=== PATIENT | male | born 1935 | race African-American/Black ===

== ENCOUNTER 2017-10-15 10:33 | Inpatient (IN) | payer MEDICARE, OTHER ==
[~2017-10-15] VITALS: Ht 121.9 cm; Wt 48.6 kg
[~2017-10-15 10:33] MED LIST: BENZ-8 PO; BUDE10.2 IH; CITA20TA5 PO; CLOP75TA PO; DONE10TA7 PO; FINA5TAB4 PO; GLIP5TAB10 PO; HYDR-2758 PO; LATA2.5D3 EACHEYE; LISI-338 PO; LORA10TA3 PO; METF500T4 PO; OMEP40CA5 PO; SILO8CAP PO; SUCR1TAB PO; VENTOLIN HFA18 GM IH; VENTOLIN HFA18 GM INH; ZOLP5TAB5 PO
[2017-10-15] MEDS ORDERED: TRIA15OI9 TP (11:05)
[2017-10-15] MEDS ORDERED: TAMS0.4C2 PO (11:05)
[2017-10-15] MEDS ORDERED: LATA2.5D3 EACHEYE (11:05)
[2017-10-15] MEDS ORDERED: QUET100T PO (11:05)
[2017-10-15] MEDS ORDERED: SUCR1TAB PO (11:05)
[2017-10-15] MEDS ORDERED: PROM6.25 PO (11:05)
[2017-10-15] MEDS ORDERED: FERR-26 PO (11:05)
[2017-10-15 12:51] VITALS: BP 105/50
[2017-10-15 15:00] VITALS: BP 116/66
[2017-10-15] MEDS: IV NORMAL SALINE 1000ML BAG 1,000 ML IV SCH (15:56)
--- NOTE | 2017-10-15 16:09 | PDOC2 ---
GI CONSULT Reason For Consult: Anemia HPI: HPI: 81 y/o male directly admitted by Dr. Casiano this morning. Had labs drawn at some point (says last week), was told he was anemic. Is visually impaired and a poor historian, RN says confused at times. Not sure what meds he takes but summary list include Plavix, iron, omeprazole, and sucralfate. He denies abd pain, n/v, diarrhea, and constipation. Says has been eating and drinking ok. Not sure about bleeding. Thinks he had a colonoscopy a couple years ago. Not sure about previous EGD. Denies gallbladder, liver, or pancreas history. Says his sister knows more about his health history. Pending studies include: CBC, CMP, CXR, EKG, and stool culture. Last Hgb available for review from 04/2015 is 9.4. Hematology/oncology has been consulted as well. Chart lists h/o prostate cancer; he's unclear re: treatment. Update - Dr. Ignacio able to locate some records: EGD and colonoscopy 06/2007 (Dr. Naun Eisenberg for GI bleeding on Coumadin): reflux esophagitis, hiatal hernia, atrophic gastritis, diverticulosis, and internal hemorrhoids. Colonoscopy 12/2009 (Dr. Carloz Eisenberg for rectal bleeding): melanosis and internal hemorrhoids. EGD 06/2010 (Dr. Carias for anemia, dyspepsia, and dysphagia): mild esophagitis , gastric angiodysplasias treated w/ APC, unremarkable duodenum. PMH: PMH: per chart - HTN, HLD, COPD, pneumonia, SCOTT, PVD, CKD, DM, diabetic retinopathy/ blindness/glaucoma, insomnia, anemia, prostate cancer, (?treatment), bilateral AKA FH: Family History: No pertinent hx (denies GI cancers) Social History: Smoke: <1 pack per day ALCOHOL: none Drugs: None ROS: GEN: Denies fevers, chills, sweats HEENT: Denies blurred vision, sore throat CV: Denies chest pain RESP: Denies shortness of air, cough GI: Per HPI : Denies dysuria ENDO: Denies weight changes NEURO: +confusion MSK: Denies weakness SKIN: Denies jaundice, pruritus Vitals: Vitals: Vital Signs Date Time Temp Pulse Resp B/P (MAP) Pulse Ox O2 Delivery O2 Flow Rate FiO2 10/15/17 15:00 98.3 75 18 116/66 (83) 100 Room Air 98.3 Labs: Labs: Pending. Allergies: Coded Allergies: lisinopril (Verified Allergy, Intermediate, 04/28/15) Medications: Current Medications Medications (Trade) Dose Ordered Sig/Alana Route PRN Reason Start Time Stop Time Status Last Admin Dose Admin Sodium Chloride 1,000 ml @ 75 mls/hr [id number] IV 10/15/17 15:45 10/15/17 15:56 Imaging: Imaging: - PE: GEN: NAD HEENT: Atraumatic LUNGS: clear HEART: RRR ABD: NABS, S/ND/NT EXTREMITY: bilateral AKA SKIN: No rashes, no jaundice NEURO/PSYCH: A & O 3 A/P: A/P: Anemia -history of this, labs pending -on Plavix, iron, omeprazole, and sucralfate -?bleeding -previous 'scopes for same per HPI: h/o mild reflux, gastric AVMs (treated w/ APC in 2009), diverticulosis, and hemorrhoids -- Await pending studies, observe for bleeding. 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 Will review w/ Dr. Ignacio. PRIYANK ROCHA Oct 15, 2017 16:09
--- NOTE | 2017-10-15 16:21 | RAD ---
PORTABLE CHEST 1V Clinical Indication: Cough Comparison: Chest radiograph dated 04/26/2015 Findings: Emphysematous changes. Unchanged interstitial opacities. Right lower lung zone heterogenous air space opacities.. Stable pulmonary vasculature. Possible small right pleural effusion. No pneumothorax. The cardiomediastinal silhouette is stable. Stable atherosclerotic thoracic aorta. No acute osseous abnormality. IMPRESSION: 1. Right lower lung zone heterogenous air space opacities. Findings may relate to atelectasis, although an infectious process cannot be excluded. Recommend continued radiographic follow-up to resolution. 2. Possible small right pleural effusion.
[2017-10-15 16:25] LABS: BASO # 0.1 x10^3/uL (0.0-0.2); BASO % 1 % (0-3); EOS % 4 % (0-3); LYMPH # 1.7 x10^3/uL (1.0-4.8); LYMPH % 21 % (24-48); MEAN CORPUSCULAR HEMOGLOBIN 22 pg (25-35); MEAN CORPUSCULAR HGB CONC 32 g/dL (31-37); MEAN CORPUSCULAR VOLUME 71 fL (79-100); MONO % 11 % (0-9); NEUT % 63 % (31-73); PLATELET COUNT 580 x10^3/uL (140-400); RED BLOOD COUNT 2.71 x10^6/uL (4.30-5.70); RED CELL DISTRIBUTION WIDTH 21.5 % (11.5-14.5); WHITE BLOOD COUNT 7.8 x10^3/uL (4.0-11.0)
--- NOTE | 2017-10-15 16:25 | EKG ---
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 : [id number] Requested By: ERICA MARIANO Order Number: [id number] Reading MD: Moises Ventura Measurements Intervals Kyle Rate: 74 P: 69 CA: 160 QRS: 1 QRSD: 92 T: 106 QT: 420 QTc: 467 Interpretive Statements SINUS RHYTHM ATRIAL PREMATURE COMPLEX(ES) QRS(T) CONTOUR ABNORMALITY CONSISTENT WITH ANTEROSEPTAL INFARCT AGE UNDETERMINED T ABNORMALITY IN ANTEROLATERAL LEADS ABNORMAL ECG RI6.01 Compared to ECG 04/26/2015 17:28:07 Myocardial infarct finding now present Left-axis deviation no longer present T-wave abnormality still present Electronically Signed On 10-15-2017 17:57:22 CASINO WORKER by Moises Ventura
[2017-10-15 16:28] LABS: HEMATOCRIT 19.2 % (39.0-53.0); HEMOGLOBIN 6.1 g/dL (13.0-17.5)
[2017-10-15 16:51] LABS: ALBUMIN 1.7 g/dL (3.4-5.0); ALBUMIN/GLOBULIN RATIO 0.2 (1.0-1.7); CALCIUM 8.3 mg/dL (8.5-10.1); CREATININE 1.8 mg/dL (0.7-1.3); GFR 44.1; POTASSIUM 4.6 mmol/L (3.5-5.1); TOTAL BILIRUBIN 0.1 mg/dL (0.2-1.0); TOTAL PROTEIN 9.6 g/dL (6.4-8.2)
[2017-10-15] MEDS: PANTOPRAZOLE 40 MG TABLET.DR. PO SCH (17:11)
[2017-10-15 17:15] LABS: ANISOCYTOSIS MOD; HYPOCHROMIA MOD; MICROCYTOSIS MOD; PLT ESTIMATE INCREASED (ADEQUATE); POIKILOCYTOSIS SLIGHT; TARGET CELLS MOD
[2017-10-15 17:16] LABS: SCHISTOCYTES FEW
[2017-10-15 17:26] LABS: % SAT IRON 18 % (15-34); IRON,SERUM 41 ug/dL (65-175)
[2017-10-15 17:57] LABS: FOLATE 18.2 ng/ml (3.2-20.0)
[2017-10-15 19:00] VITALS: BP 131/66
[2017-10-15] MEDS ORDERED: PROMETHAZINE 6.25 MG/5 ML SYRUP. PO PRN (21:15)
[2017-10-15] MEDS ORDERED: HYDROcodone/APAP 5/325MG 1 TAB TABLET PO PRN (21:15)
[2017-10-15] MEDS ORDERED: ALBUTEROL SULFATE 2.5 MG/3 ML NEBU. NEB PRN (21:30)
[2017-10-15] MEDS: SUCRALFATE 1 GM TABLET. PO SCH (22:03)
[2017-10-15] MEDS: QUEtiapine 100 MG TABLET. PO SCH (22:03)
[2017-10-15] MEDS: ZOLPIDEM 5 MG TABLET. PO SCH (22:03)
[2017-10-15 22:49] VITALS: BP 134/76
[2017-10-15 23:57] VITALS: BP 117/65
[2017-10-16] VITALS (18 sets, daily range): BP systolic 106–135; BP diastolic 57–78
--- NOTE | 2017-10-16 03:52 | CONS ---
DATE OF CONSULTATION: 10/15/2017 CONSULTATION REQUESTING PHYSICIAN: Dr. Forrest Casiano. REASON FOR CONSULTATION: Anemia. HISTORY OF PRESENT ILLNESS: The patient is an 81-year-old -[place] gentleman with a CBC done by Dr. Casiano and was noted to have anemia in 09/2017. The patient is visually impaired and he is not sure if he has had any hematemesis, melena or hematochezia. He does take Plavix and omeprazole and sucralfate. No abdominal pain, nausea, vomiting, diarrhea or constipation. He reports that his appetite has been good. He has had a history of colonoscopy approximately in 2014. Review of the old records indicates that EGD and colonoscopy in 06/[address] Naun Eisenberg for GI bleeding on Coumadin. He was noted to have reflux esophagitis, hiatal hernia, atrophic gastritis, diverticulosis and internal hemorrhoids. Colonoscopy in 12/[address] Carloz Eisenberg for rectal bleeding revealed melanosis and internal hemorrhoids. EGD in 06/[address] Carias was done for anemia, which revealed mild esophagitis, gastric angiodysplasia treated with APC and unremarkable duodenum. He underwent CBC on 10/15/2017 which revealed a hemoglobin of 6.1 with an MCV of 71, platelet count 580 and hence I was consulted for further evaluation of anemia and thrombocytosis. PAST MEDICAL HISTORY: Hypertension, hyperlipidemia, COPD, pneumonia, obstructive sleep apnea, peripheral vascular disease, chronic kidney disease, diabetes mellitus, diabetic retinopathy, blind, has glaucoma, insomnia, anemia, prostate cancer, bilateral above-knee amputations. FAMILY HISTORY: Negative for any primary bone marrow disorders. SOCIAL HISTORY: He has history of smoking less than 1 pack of cigarettes per day. REVIEW OF SYSTEMS: A 12-point review of system was performed. Pertinent positives are mentioned in the history of present illness. Rest of the system review is negative. PHYSICAL EXAMINATION: GENERAL APPEARANCE: The patient is an 81-year-old -[place] gentleman who is in no acute cardiorespiratory distress. VITAL SIGNS: Blood pressure 116/66, temperature 98.3. HEENT: Atraumatic, normocephalic. EYES: He is blind. NECK: Supple. CHEST: Bilaterally symmetrical. HEART: S1, S2 normal. ABDOMEN: Soft, nontender. CENTRAL NERVOUS SYSTEM: No focal deficits. LYMPHATICS: No lymphadenopathy. SKIN: No rashes. PSYCHOLOGIC: Mood and affect are appropriate. MUSCULOSKELETAL: No joint effusions. LABORATORY DATA: On 10/15/2017, WBC 7.8, hemoglobin 6.1, platelet count 580, MCV 71. IMPRESSION AND PLAN: 1. Microcytic anemia, which I suspect is due to iron deficiency anemia. Hemoglobin is only 6.1 and I agreed to transfuse as needed. Continue to monitor hemoglobin. Appreciate GI consultation. 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 Ignacio from GI felt that repeating EGD would not be of much benefit. Recommended proton pump inhibitors and iron supplementation. I will also continue to monitor hemoglobin. I will check iron panel. If he has evidence of iron deficiency, I will give him IV Venofer. 2. Thrombocytosis, which is a reactive process, which I suspect is due to iron deficiency. I will continue to monitor. 3. Dr. Ignacio also noted history of elevated globulins and hence I will order serum protein electrophoresis. I discussed with registered nurse. KRISSY RIDER MD DR: TOMY/sarai JOB#: [id number] / [id number] Forrest Hawk MD [facility]
[2017-10-16 05:39] LABS: CALCIUM 8.3 mg/dL (8.5-10.1); CREATININE 1.6 mg/dL (0.7-1.3); GFR 50.6; POTASSIUM 4.1 mmol/L (3.5-5.1)
[2017-10-16] MEDS: IV NORMAL SALINE 1000ML BAG 1,000 ML IV SCH ×2 (05:39→20:32)
[2017-10-16 07:48] LABS: BASO # 0.1 x10^3/uL (0.0-0.2); BASO % 1 % (0-3); EOS % 5 % (0-3); HEMATOCRIT 24.2 % (39.0-53.0); HEMOGLOBIN 7.9 g/dL (13.0-17.5); LYMPH # 1.3 x10^3/uL (1.0-4.8); LYMPH % 22 % (24-48); MEAN CORPUSCULAR HEMOGLOBIN 24 pg (25-35); MEAN CORPUSCULAR HGB CONC 32 g/dL (31-37); MEAN CORPUSCULAR VOLUME 74 fL (79-100); MONO % 13 % (0-9); NEUT % 59 % (31-73); PLATELET COUNT 461 x10^3/uL (140-400); RED BLOOD COUNT 3.29 x10^6/uL (4.30-5.70); RED CELL DISTRIBUTION WIDTH 21.4 % (11.5-14.5); WHITE BLOOD COUNT 6.3 x10^3/uL (4.0-11.0)
[2017-10-16] MEDS: PANTOPRAZOLE 40 MG TABLET.DR. PO SCH (07:55)
[2017-10-16] MEDS: SUCRALFATE 1 GM TABLET. PO SCH ×4 (07:55→20:33)
[2017-10-16] MEDS: IPRATRPIUM/ALBUTEROL 0.5/2.5MG 3 ML NEBU. NEB SCH ×4 (07:58→19:54)
[2017-10-16] MEDS: BUDESONIDE 0.5 MG/2 ML NEBU. NEB SCH ×2 (07:58→19:54)
[2017-10-16] MEDS ORDERED: IRON SUCROSE COMPLEX 500 MG in IV NORMAL SALINE 250ML 250 ML IV ONE (09:00)
[2017-10-16] MEDS: CLOPIDOGREL BISULFATE 75 MG TABLET PO SCH (09:13)
[2017-10-16] MEDS: FERROUS SULFATE 325 MG TABLET. PO SCH (09:13)
[2017-10-16] MEDS: FINASTERIDE 5 MG TABLET. PO SCH (09:14)
[2017-10-16] MEDS: CITALOPRAM 20 MG TABLET. PO SCH (09:14)
[2017-10-16] MEDS: TAMSULOSIN 0.4 MG CAP.ER.24H. PO SCH (09:14)
[2017-10-16] MEDS: LISINOPRIL 5 MG TABLET. PO SCH (09:14)
--- NOTE | 2017-10-16 10:11 | PDOC ---
Provider Note Provider Note Pt seen.H&P dictated. #[id number] ERICA MARIANO MD Oct 16, 2017 10:11
[2017-10-16] MEDS ORDERED: DEXTROSE 50% 25 GM / 50ML DISP.SYRIN. IV PRN (10:15)
--- NOTE | 2017-10-16 10:20 | PDOC ---
Subjective: Subjective: Denies pain. Objective: Objective: No bleeding per RN. Vital Signs: Vital Signs Date Time Temp Pulse Resp B/P (MAP) Pulse Ox O2 Delivery O2 Flow Rate FiO2 10/16/17 09:14 70 118/66 10/16/17 08:01 99 Room Air 10/16/17 07:00 96.5 20 96.5 Labs: Laboratory Tests Test 10/15/17 16:09 10/16/17 04:10 10/16/17 07:30 White Blood Count 7.8 x10^3/uL 6.3 x10^3/uL Red Blood Count 2.71 x10^6/uL 3.29 x10^6/uL Hemoglobin 6.1 g/dL 7.9 g/dL Hematocrit 19.2 % 24.2 % Mean Corpuscular Volume 71 fL 74 fL Mean Corpuscular Hemoglobin 22 pg 24 pg Mean Corpuscular Hemoglobin Concent 32 g/dL 32 g/dL Red Cell Distribution Width 21.5 % 21.4 % Platelet Count 580 x10^3/uL 461 x10^3/uL Neutrophils (%) (Auto) 63 % 59 % Lymphocytes (%) (Auto) 21 % 22 % Monocytes (%) (Auto) 11 % 13 % Eosinophils (%) (Auto) 4 % 5 % Basophils (%) (Auto) 1 % 1 % Neutrophils # (Auto) 4.9 x10^3uL 3.7 x10^3uL Lymphocytes # (Auto) 1.7 x10^3/uL 1.3 x10^3/uL Monocytes # (Auto) 0.8 x10^3/uL 0.8 x10^3/uL Eosinophils # (Auto) 0.3 x10^3/uL 0.3 x10^3/uL Basophils # (Auto) 0.1 x10^3/uL 0.1 x10^3/uL Platelet Estimate Increased Hypochromasia Mod Poikilocytosis Slight Anisocytosis Mod Microcytosis Mod Target Cells Mod Schistocytes Few Reticulocyte Count (auto) 0.8 % Sodium Level 136 mmol/L 138 mmol/L Potassium Level 4.6 mmol/L 4.1 mmol/L Chloride Level 106 mmol/L 108 mmol/L Carbon Dioxide Level 23 mmol/L 23 mmol/L Anion Gap 7 7 Blood Urea Nitrogen 36 mg/dL 30 mg/dL Creatinine 1.8 mg/dL 1.6 mg/dL Estimated GFR (Cockcroft-Gault) 44.1 50.6 BUN/Creatinine Ratio 20 Glucose Level 79 mg/dL 77 mg/dL Calcium Level 8.3 mg/dL 8.3 mg/dL Iron Level 41 ug/dL Total Iron Binding Capacity 227 ug/dL Iron Saturation 18 % Ferritin 24 ng/mL Total Bilirubin 0.1 mg/dL Aspartate Amino Transf (AST/SGOT) 22 U/L Alanine Aminotransferase (ALT/SGPT) 16 U/L Alkaline Phosphatase 64 U/L Total Protein 9.6 g/dL Albumin 1.7 g/dL Albumin/Globulin Ratio 0.2 Vitamin B12 Level 910 pg/mL Serum Folate 18.20 ng/ml Thyroid Stimulating Hormone (TSH) 2.110 uIU/mL Imaging: CXR 10/15/17 IMPRESSION: 1. Right lower lung zone heterogenous air space opacities. Findings may relate to atelectasis, although an infectious process cannot be excluded. Recommend continued radiographic follow-up to resolution. 2. Possible small right pleural effusion. PE: GEN: NAD, in bed w/ blankets covering head LUNGS: clear HEART: RRR ABD: S/ND/NT NEURO/PSYCH: awake and alert A/P: Chronic XIMENA -Hgb improved (6.1 to 7.9) w/ transfusion -taking PO iron QD at home, now receiving Venofer per hematology -on Plavix, additional h/o CKD -on previous EGDs and colonoscopies: mild reflux, gastric AVMs (treated w/ APC in 2009), diverticulosis, and hemorrhoids ---> on PPI and sucralfate -hyperglobulinemia, SPEP pending -- ?advance diet - will review w/ Dr. Ignacio. No plans to repeat endoscopy at this point. PRIYANK ROCHA Oct 16, 2017 10:20
--- NOTE | 2017-10-16 10:44 | HP ---
ADMIT DATE: 10/15/2017 PATIENT LOCATION: [facility]. REASON FOR ADMISSION TO THE HOSPITAL: Anemia. Routine lab shows hemoglobin 6. The patient was admitted for blood transfusion and further GI and Hematology workup. HISTORY OF PRESENT ILLNESS: The patient is an 81-year-old male who is chronically ill. 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 His routine labs show hemoglobin was 6. He was admitted to the hospital. PAST MEDICAL HISTORY: Has history as mentioned above, diabetes, hypertension, congestive heart failure, anemia and GI bleeding in the past. PAST SURGICAL HISTORY: Legally blind, bilateral leg amputation above the knee and the patient also had prostate cancer, being followed at Urology. FAMILY HISTORY: Unremarkable. SOCIAL HISTORY: He smokes less than a pack for 50-60 years. Denies alcohol. He is on chronic pain medications. The patient lives with his sister, wheelchair level of activity. ALLERGIES: No known drug allergies. MEDICATIONS AT HOME: The patient is on albuterol 2 puffs 4 times daily, budesonide, Symbicort twice a day, citalopram 20 mg daily, Plavix 75 mg daily, iron 325 daily, finasteride 5 mg daily, hydrocodone q.6h., Latanoprost eyedrops for glaucoma each eye, lisinopril 5 mg daily, promethazine with codeine cough syrup p.r.n., Seroquel 100 mg at bedtime, Carafate 1 gram 4 times daily, Flomax 0.4 daily, Ambien 5 mg daily, inhaler Ventolin 2 puffs 4 times daily, omeprazole 40 mg daily and I believe, he may be on glipizide 5 mg twice a day. REVIEW OF SYSTEMS: CARDIAC RAYGOZA: Some cough. GASTROINTESTINAL: No vomiting blood or black stools. He has been steadily losing weight because of his chronic condition. Otherwise, rest of 14 systems was reviewed and negative. PHYSICAL EXAMINATION: GENERAL: On examination, the patient is chronically sick, chronically looks wasted. VITAL SIGNS: Temperature 97, pulse 75, respirations 16, blood pressure 125/78 and 96% on room air. HEENT: The patient is legally blind. Oral cavity, no teeth. NECK: Supple. CHEST: Symmetrical, COPD pattern. CARDIOVASCULAR: S1, S2. LUNGS: Diminished breath sounds. ABDOMEN: Soft. No mass palpable. EXTERNAL GENITALIA: No Luna. RECTAL EXAMINATION: Deferred. EXTREMITIES: Bilateral [id number] stumps and wasting of the muscles. NEUROLOGIC:. Moves upper extremities and the patient says one word, "see, I know". LABORATORY DATA: White count 8, hemoglobin 6 and platelets 580,000. Electrolytes show sodium 136, potassium 4.6, chloride 106, bicarbonate 23, BUN 36, creatinine 1.8 and glucose 79. LFTs were normal. FINAL IMPRESSION: 1. Anemia, acute on chronic iron def anemia. 2. Coronary artery disease. 3. History of congestive heart failure. 4. History of diabetes. 5. Hypertension. 6. Hyperlipidemia. 7. Bilateral amputee. 8. Diabetic, legally blind from glaucoma and diabetic retinopathy. 9. History of prostate cancer. 10. Severe protein-calorie malnutrition. PLAN: At this time, admit to the hospital. Transfuse to keep hemoglobin around 8. Hematology was consulted and was checking iron, B12 and folic acid. He was given IV Venofer and also GI is consulted to see if he could need EGD at this point or not. The patient had apparently colonoscopy in the past. We will see how the patient's condition improves. ERICA MARIANO MD DR: IVETTE/sarai JOB#: [id number] / [id number] [place]
[2017-10-16] MEDS: INSULIN ASPART 300 UNITS/3 ML INSULN.PEN SQ SCH ×2 (12:11→17:11)
--- NOTE | 2017-10-16 13:04 | PDOC ---
PROGRESS NOTES Subjective Subjective HPI - f/u of anemia ROS - no CP Objective Objective Vital Signs Date Time Temp Pulse Resp B/P (MAP) Pulse Ox O2 Delivery O2 Flow Rate FiO2 10/16/17 11:20 Room Air 10/16/17 10:56 97.1 72 20 106/60 (75) 100 97.1 Intake and Output 10/16/17 07:00 Intake Total 499 ml Output Total 700 ml Balance -201 ml Intake Oral 180 ml Blood Product IV Normal Saline Flush 319 ml Output Urine Total 700 ml # Voids 3 Physical Exam Heart: Normal S1, Normal S2 General: Alert, Oriented X3 Lungs: Clear to auscultation Assessment Assessment IMPRESSION AND PLAN: 1. Microcytic anemia, is due to iron deficiency anemia due to GI bleed. Hemoglobin was only 6.1 and I agreed to transfuse as needed. Continue to monitor hemoglobin. Appreciate GI consultation. 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 Ignacio from GI felt that repeating EGD would not be of much benefit. Recommended proton pump inhibitors and iron supplementation. I will also continue to monitor hemoglobin. Iron panel suggest iron def. I will give him IV Venofer 500 mg x 1 dose 10/16/17 2. Thrombocytosis, which is a reactive process, which I suspect is due to iron deficiency. I will continue to monitor. 3. Dr. Ignacio also noted history of elevated globulins and hence I will order serum protein electrophoresis. I discussed with Dr Casiano. Comment Review of Relevant I have reviewed the following items margi (where applicable) has been applied. Labs Laboratory Tests Test 10/15/17 16:09 10/16/17 04:10 10/16/17 07:30 10/16/17 11:18 White Blood Count 7.8 x10^3/uL (4.0-11.0) 6.3 x10^3/uL (4.0-11.0) Red Blood Count 2.71 x10^6/uL (4.30-5.70) 3.29 x10^6/uL (4.30-5.70) Hemoglobin 6.1 g/dL (13.0-17.5) 7.9 g/dL (13.0-17.5) Hematocrit 19.2 % (39.0-53.0) 24.2 % (39.0-53.0) Mean Corpuscular Volume 71 fL (79-100) 74 fL (79-100) Mean Corpuscular Hemoglobin 22 pg (25-35) 24 pg (25-35) Mean Corpuscular Hemoglobin Concent 32 g/dL (31-37) 32 g/dL (31-37) Red Cell Distribution Width 21.5 % (11.5-14.5) 21.4 % (11.5-14.5) Platelet Count 580 x10^3/uL (140-400) 461 x10^3/uL (140-400) Neutrophils (%) (Auto) 63 % (31-73) 59 % (31-73) Lymphocytes (%) (Auto) 21 % (24-48) 22 % (24-48) Monocytes (%) (Auto) 11 % (0-9) 13 % (0-9) Eosinophils (%) (Auto) 4 % (0-3) 5 % (0-3) Basophils (%) (Auto) 1 % (0-3) 1 % (0-3) Neutrophils # (Auto) 4.9 x10^3uL (1.8-7.7) 3.7 x10^3uL (1.8-7.7) Lymphocytes # (Auto) 1.7 x10^3/uL (1.0-4.8) 1.3 x10^3/uL (1.0-4.8) Monocytes # (Auto) 0.8 x10^3/uL (0.0-1.1) 0.8 x10^3/uL (0.0-1.1) Eosinophils # (Auto) 0.3 x10^3/uL (0.0-0.7) 0.3 x10^3/uL (0.0-0.7) Basophils # (Auto) 0.1 x10^3/uL (0.0-0.2) 0.1 x10^3/uL (0.0-0.2) Platelet Estimate Increased (ADEQUATE) Hypochromasia Mod Poikilocytosis Slight Anisocytosis Mod Microcytosis Mod Target Cells Mod Schistocytes Few Reticulocyte Count (auto) 0.8 % (0.5-2.5) Sodium Level 136 mmol/L (136-145) 138 mmol/L (136-145) Potassium Level 4.6 mmol/L (3.5-5.1) 4.1 mmol/L (3.5-5.1) Chloride Level 106 mmol/L (98-107) 108 mmol/L (98-107) Carbon Dioxide Level 23 mmol/L (21-32) 23 mmol/L (21-32) Anion Gap 7 (6-14) 7 (6-14) Blood Urea Nitrogen 36 mg/dL (8-26) 30 mg/dL (8-26) Creatinine 1.8 mg/dL (0.7-1.3) 1.6 mg/dL (0.7-1.3) Estimated GFR (Cockcroft-Gault) 44.1 50.6 BUN/Creatinine Ratio 20 (6-20) Glucose Level 79 mg/dL (70-99) 77 mg/dL (70-99) Calcium Level 8.3 mg/dL (8.5-10.1) 8.3 mg/dL (8.5-10.1) Iron Level 41 ug/dL (65-175) Total Iron Binding Capacity 227 ug/dL (250-450) Iron Saturation 18 % (15-34) Ferritin 24 ng/mL (26-388) Total Bilirubin 0.1 mg/dL (0.2-1.0) Aspartate Amino Transf (AST/SGOT) 22 U/L (15-37) Alanine Aminotransferase (ALT/SGPT) 16 U/L (16-63) Alkaline Phosphatase 64 U/L (46-116) Total Protein 9.6 g/dL (6.4-8.2) Albumin 1.7 g/dL (3.4-5.0) Albumin/Globulin Ratio 0.2 (1.0-1.7) Vitamin B12 Level 910 pg/mL (247-911) Serum Folate 18.20 ng/ml (3.2-20.0) Hemoglobin A1c 6.4 % (4.8-5.6) Thyroid Stimulating Hormone (TSH) 2.110 uIU/mL (0.358-3.74) Glucose (Fingerstick) 224 mg/dL (70-99) Laboratory Tests Test 10/15/17 16:09 10/16/17 04:10 10/16/17 07:30 10/16/17 11:18 White Blood Count 7.8 x10^3/uL (4.0-11.0) 6.3 x10^3/uL (4.0-11.0) Red Blood Count 2.71 x10^6/uL (4.30-5.70) 3.29 x10^6/uL (4.30-5.70) Hemoglobin 6.1 g/dL (13.0-17.5) 7.9 g/dL (13.0-17.5) Hematocrit 19.2 % (39.0-53.0) 24.2 % (39.0-53.0) Mean Corpuscular Volume 71 fL (79-100) 74 fL (79-100) Mean Corpuscular Hemoglobin 22 pg (25-35) 24 pg (25-35) Mean Corpuscular Hemoglobin Concent 32 g/dL (31-37) 32 g/dL (31-37) Red Cell Distribution Width 21.5 % (11.5-14.5) 21.4 % (11.5-14.5) Platelet Count 580 x10^3/uL (140-400) 461 x10^3/uL (140-400) Neutrophils (%) (Auto) 63 % (31-73) 59 % (31-73) Lymphocytes (%) (Auto) 21 % (24-48) 22 % (24-48) Monocytes (%) (Auto) 11 % (0-9) 13 % (0-9) Eosinophils (%) (Auto) 4 % (0-3) 5 % (0-3) Basophils (%) (Auto) 1 % (0-3) 1 % (0-3) Neutrophils # (Auto) 4.9 x10^3uL (1.8-7.7) 3.7 x10^3uL (1.8-7.7) Lymphocytes # (Auto) 1.7 x10^3/uL (1.0-4.8) 1.3 x10^3/uL (1.0-4.8) Monocytes # (Auto) 0.8 x10^3/uL (0.0-1.1) 0.8 x10^3/uL (0.0-1.1) Eosinophils # (Auto) 0.3 x10^3/uL (0.0-0.7) 0.3 x10^3/uL (0.0-0.7) Basophils # (Auto) 0.1 x10^3/uL (0.0-0.2) 0.1 x10^3/uL (0.0-0.2) Platelet Estimate Increased (ADEQUATE) Hypochromasia Mod Poikilocytosis Slight Anisocytosis Mod Microcytosis Mod Target Cells Mod Schistocytes Few Reticulocyte Count (auto) 0.8 % (0.5-2.5) Sodium Level 136 mmol/L (136-145) 138 mmol/L (136-145) Potassium Level 4.6 mmol/L (3.5-5.1) 4.1 mmol/L (3.5-5.1) Chloride Level 106 mmol/L (98-107) 108 mmol/L (98-107) Carbon Dioxide Level 23 mmol/L (21-32) 23 mmol/L (21-32) Anion Gap 7 (6-14) 7 (6-14) Blood Urea Nitrogen 36 mg/dL (8-26) 30 mg/dL (8-26) Creatinine 1.8 mg/dL (0.7-1.3) 1.6 mg/dL (0.7-1.3) Estimated GFR (Cockcroft-Gault) 44.1 50.6 BUN/Creatinine Ratio 20 (6-20) Glucose Level 79 mg/dL (70-99) 77 mg/dL (70-99) Calcium Level 8.3 mg/dL (8.5-10.1) 8.3 mg/dL (8.5-10.1) Iron Level 41 ug/dL (65-175) Total Iron Binding Capacity 227 ug/dL (250-450) Iron Saturation 18 % (15-34) Ferritin 24 ng/mL (26-388) Total Bilirubin 0.1 mg/dL (0.2-1.0) Aspartate Amino Transf (AST/SGOT) 22 U/L (15-37) Alanine Aminotransferase (ALT/SGPT) 16 U/L (16-63) Alkaline Phosphatase 64 U/L (46-116) Total Protein 9.6 g/dL (6.4-8.2) Albumin 1.7 g/dL (3.4-5.0) Albumin/Globulin Ratio 0.2 (1.0-1.7) Vitamin B12 Level 910 pg/mL (247-911) Serum Folate 18.20 ng/ml (3.2-20.0) Hemoglobin A1c 6.4 % (4.8-5.6) Thyroid Stimulating Hormone (TSH) 2.110 uIU/mL (0.358-3.74) Glucose (Fingerstick) 224 mg/dL (70-99) Medications Current Medications Sodium Chloride 1,000 ml @ 75 mls/hr [id number] IV Last administered on 05:39; Start 10/15/17 at 15:45 Pantoprazole Sodium (Protonix) 40 mg DAILYAC PO Last administered on 07:55; Start 10/15/17 at 16:30 Citalopram Hydrobromide (CeleXA) 20 mg DAILY PO Last administered on 09:14; Start 10/16/17 at 09:00 Clopidogrel Bisulfate (Plavix) 75 mg DAILY PO Last administered on 10/16/17 09:13; Start 10/16/17 at 09:00 Ferrous Sulfate (Feosol) 325 mg DAILY PO Last administered on 10/16/17 09:13 ; Start 10/16/17 at 09:00 Finasteride (Proscar) 5 mg DAILY PO Last administered on 10/16/17 09:14; Start 10/16/17 at 09:00 Acetaminophen/ Hydrocodone Bitart (Lortab 5/325) 1 tab PRN TID PRN PO MODERATE PAIN; Start 10/15/17 at 21:15 Latanoprost (Xalatan) 1 drop QHS OU ; Start 10/16/17 at 21:00 Lisinopril (Prinivil) 5 mg DAILY PO Last administered on 10/16/17 09:14; Start 10/16/17 at 09:00 Promethazine HCl (Phenergan) 6.25 mg PRN TID PRN PO NAUSEA; Start 10/15/17 at 21:15 Quetiapine Fumarate (SEROquel) 100 mg HS PO Last administered on 10/15/17 22: 03; Start 10/15/17 at 22:00 Sucralfate (Carafate) 1 gm QIDACHS PO Last administered on 10/16/17 12:07; Start 10/15/17 at 22:00 Tamsulosin HCl (Flomax) 0.4 mg DAILY PO Last administered on 10/16/17 09:14; Start 10/16/17 at 09:00 Zolpidem Tartrate (Ambien) 5 mg QHS PO Last administered on 10/15/17 22:03; Start 10/15/17 at 22:00 Albuterol Sulfate (Ventolin Neb Soln) 2.5 mg PRN Q4HRS PRN NEB SHORTNESS OF BREATH; Start 10/15/17 at 21:30 Budesonide (Pulmicort) 0.5 mg RTBID NEB Last administered on 10/16/17 07:58; Start 10/16/17 at 08:00 Albuterol/ Ipratropium (Duoneb) 3 ml RTQID NEB Last administered on 10/16/17 11:19; Start 10/16/17 at 08:00 Iron Sucrose 500 mg/Sodium Chloride 275 ml @ 78.571 mls/ hr 1X ONCE IV Last administered on 10/16/17 09:14; Start 10/16/17 at 09:00; Stop 10/16/17 at 12 :29; Status DC Insulin Aspart (NovoLOG) 0-7 UNITS TIDWMEALS SQ Last administered on 12:11; Start 10/16/17 at 12:00 Dextrose (Dextrose 50%-Water Syringe) 12.5 gm PRN Q15MIN PRN IV SEE COMMENTS; Start 10/16/17 at 10:15 Active Scripts Active Reported Latanoprost 2.5 Ml Drops 1 Drop EACHEYE QHS Triamcinolone Acetonide 0.5% Oint (Triamcinolone Acetonide) 15 Gm Oint...g. 1 Deya TP BID Ferrous Sulfate 325 Mg Tablet 1 Tab PO DAILY Quetiapine Fumarate 100 Mg Tablet 100 Mg PO HS Promethazine Hcl 6.25 Mg/5 Ml Syrup 5 Ml PO TID PRN PRN Sucralfate 1 Gm Tablet 1 Tab PO QID Tamsulosin Hcl 0.4 Mg Cap.er.24h 1 Cap PO DAILY Ventolin Hfa Inhaler (Albuterol Sulfate) 18 Gm Hfa.aer.ad 2 Puff INH Q4HRS Hydrocodone-Apap 5-325 (Hydrocodone Bit/Acetaminophen) 1 Each Tablet 1-2 Tab PO Q4-6HRS Finasteride 5 Mg Tablet 5 Mg PO DAILY Ventolin Hfa Inhaler (Albuterol Sulfate) 18 Gm Hfa.aer.ad 2 Puff IH PRN Q4-6HRS Symbicort 160-4.5 Mcg Inhaler (Budesonide/Formoterol Fumarate) 10.2 Gm Hfa.aer.ad 2 Puff IH BID Lisinopril 5 Mg Tablet 1 Tab PO DAILY Glipizide 5 Mg Tablet 1 Tab PO BID Omeprazole 40 Mg Capsule.dr 1 Cap PO DAILY Clopidogrel (Clopidogrel Bisulfate) 75 Mg Tablet 1 Tab PO DAILY Citalopram Hbr (Citalopram Hydrobromide) 20 Mg Tablet 1 Tab PO DAILY Zolpidem Tartrate 5 Mg Tablet 1 Tab PO QHS Vitals/I & O Vital Sign - Last 24 Hours 10/15/17 10/15/17 10/15/17 10/15/17 14:48 15:00 19:00 19:56 Temp 98.3 98.4 98.3 98.4 Pulse 75 77 Resp 18 18 B/P (MAP) 116/66 (83) 131/66 (87) Pulse Ox 100 94 O2 Delivery Room Air Room Air Room Air Room Air 10/15/17 10/15/17 10/16/17 10/16/17 22:49 23:57 00:13 01:13 Temp 98.4 98.1 97.4 97.4 98.4 98.1 97.4 97.4 Pulse 80 79 76 80 Resp 20 18 18 18 B/P (MAP) 134/76 (95) 117/65 119/62 126/74 Pulse Ox 94 O2 Delivery Room Air 10/16/17 10/16/17 10/16/17 10/16/17 02:13 03:00 03:06 04:27 Temp 97.8 97.8 97.6 97.8 97.8 97.6 Pulse 80 75 76 Resp 18 16 18 B/P (MAP) 119/69 125/78 118/72 (87) Pulse Ox 96 O2 Delivery Room Air Room Air 10/16/17 10/16/17 10/16/17 10/16/17 07:00 08:00 08:01 09:14 Temp 96.5 96.5 Pulse 70 70 Resp 20 B/P (MAP) 118/66 (83) 118/66 Pulse Ox 99 99 O2 Delivery Room Air Room Air Room Air 10/16/17 10/16/17 10:56 11:20 Temp 97.1 97.1 Pulse 72 Resp 20 B/P (MAP) 106/60 (75) Pulse Ox 100 O2 Delivery Room Air Room Air Intake and Output 10/15/17 10/15/17 10/16/17 15:00 23:00 07:00 Intake Total 120 ml 379 ml Output Total 400 ml 300 ml Balance -280 ml 79 ml KRISSY RIDER MD Oct 16, 2017 13:04
[2017-10-16] MEDS: QUEtiapine 100 MG TABLET. PO SCH (20:33)
[2017-10-16] MEDS: ZOLPIDEM 5 MG TABLET. PO SCH (20:33)
[2017-10-16] MEDS ORDERED: LATANOPROST 0.005% OPHTH SOLUTION 2.5ML BOTTLE. OU SCH (21:00)
[2017-10-17 03:00] VITALS: BP 127/70
[2017-10-17 06:37] LABS: CALCIUM 8.3 mg/dL (8.5-10.1); CREATININE 1.7 mg/dL (0.7-1.3); GFR 47.2; POTASSIUM 3.9 mmol/L (3.5-5.1)
[2017-10-17 07:00] VITALS: BP 147/69
[2017-10-17] MEDS: IV NORMAL SALINE 1000ML BAG 1,000 ML IV SCH (07:37)
[2017-10-17] MEDS: INSULIN ASPART 300 UNITS/3 ML INSULN.PEN SQ SCH ×3 (08:00→17:00)
[2017-10-17] MEDS: BUDESONIDE 0.5 MG/2 ML NEBU. NEB SCH (08:02)
[2017-10-17] MEDS: IPRATRPIUM/ALBUTEROL 0.5/2.5MG 3 ML NEBU. NEB SCH ×3 (08:02→16:00)
[2017-10-17] MEDS: CLOPIDOGREL BISULFATE 75 MG TABLET PO SCH ×2 (09:00→09:05)
[2017-10-17] MEDS: CITALOPRAM 20 MG TABLET. PO SCH (09:04)
[2017-10-17] MEDS: PANTOPRAZOLE 40 MG TABLET.DR. PO SCH (09:05)
[2017-10-17] MEDS: SUCRALFATE 1 GM TABLET. PO SCH ×3 (09:05→16:43)
[2017-10-17] MEDS: FERROUS SULFATE 325 MG TABLET. PO SCH (09:05)
[2017-10-17] MEDS: FINASTERIDE 5 MG TABLET. PO SCH (09:05)
[2017-10-17] MEDS: LISINOPRIL 5 MG TABLET. PO SCH (09:05)
[2017-10-17] MEDS: TAMSULOSIN 0.4 MG CAP.ER.24H. PO SCH (09:05)
--- NOTE | 2017-10-17 09:09 | PDOC ---
PROGRESS NOTES Subjective Subjective HPI - Microcytic anemia, is due to iron deficiency anemia due to GI bleed. ROS - no bleed Objective Objective Vital Signs Date Time Temp Pulse Resp B/P (MAP) Pulse Ox O2 Delivery O2 Flow Rate FiO2 10/17/17 09:05 81 147/69 10/17/17 08:03 99 Room Air 10/17/17 03:00 97.8 20 97.8 Intake and Output 10/17/17 06:59 Intake Total 985 ml Output Total 900 ml Balance 85 ml Intake Oral 410 ml IV Total 575 ml Output Urine Total 900 ml Physical Exam General: No acute distress Neck: No JVD Assessment Assessment IMPRESSION AND PLAN: 1. Microcytic anemia, is due to iron deficiency anemia due to GI bleed. Hemoglobin was only 6.1 and I agreed to transfuse as needed. Continue to monitor hemoglobin. Appreciate GI consultation. 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 Ignacio from GI felt that repeating EGD would not be of much benefit. Recommended proton pump inhibitors and iron supplementation. I will also continue to monitor hemoglobin. Iron panel suggest iron def. s/p IV Venofer 500 mg x 1 dose 10/16/17 Ordered oral iron. f/u with Dr Casiano for monitoring cbc. 2. Thrombocytosis, which is a reactive process, which I suspect is due to iron deficiency. I will continue to monitor. 3. Dr. Ignacio also noted history of elevated globulins and hence I will order serum protein electrophoresis. I discussed with Dr Casiano. Comment Review of Relevant I have reviewed the following items margi (where applicable) has been applied. Labs Laboratory Tests Test 10/15/17 16:09 10/16/17 04:10 10/16/17 07:30 10/16/17 11:18 White Blood Count 7.8 x10^3/uL (4.0-11.0) 6.3 x10^3/uL (4.0-11.0) Red Blood Count 2.71 x10^6/uL (4.30-5.70) 3.29 x10^6/uL (4.30-5.70) Hemoglobin 6.1 g/dL (13.0-17.5) 7.9 g/dL (13.0-17.5) Hematocrit 19.2 % (39.0-53.0) 24.2 % (39.0-53.0) Mean Corpuscular Volume 71 fL (79-100) 74 fL (79-100) Mean Corpuscular Hemoglobin 22 pg (25-35) 24 pg (25-35) Mean Corpuscular Hemoglobin Concent 32 g/dL (31-37) 32 g/dL (31-37) Red Cell Distribution Width 21.5 % (11.5-14.5) 21.4 % (11.5-14.5) Platelet Count 580 x10^3/uL (140-400) 461 x10^3/uL (140-400) Neutrophils (%) (Auto) 63 % (31-73) 59 % (31-73) Lymphocytes (%) (Auto) 21 % (24-48) 22 % (24-48) Monocytes (%) (Auto) 11 % (0-9) 13 % (0-9) Eosinophils (%) (Auto) 4 % (0-3) 5 % (0-3) Basophils (%) (Auto) 1 % (0-3) 1 % (0-3) Neutrophils # (Auto) 4.9 x10^3uL (1.8-7.7) 3.7 x10^3uL (1.8-7.7) Lymphocytes # (Auto) 1.7 x10^3/uL (1.0-4.8) 1.3 x10^3/uL (1.0-4.8) Monocytes # (Auto) 0.8 x10^3/uL (0.0-1.1) 0.8 x10^3/uL (0.0-1.1) Eosinophils # (Auto) 0.3 x10^3/uL (0.0-0.7) 0.3 x10^3/uL (0.0-0.7) Basophils # (Auto) 0.1 x10^3/uL (0.0-0.2) 0.1 x10^3/uL (0.0-0.2) Platelet Estimate Increased (ADEQUATE) Hypochromasia Mod Poikilocytosis Slight Anisocytosis Mod Microcytosis Mod Target Cells Mod Schistocytes Few Reticulocyte Count (auto) 0.8 % (0.5-2.5) Sodium Level 136 mmol/L (136-145) 138 mmol/L (136-145) Potassium Level 4.6 mmol/L (3.5-5.1) 4.1 mmol/L (3.5-5.1) Chloride Level 106 mmol/L (98-107) 108 mmol/L (98-107) Carbon Dioxide Level 23 mmol/L (21-32) 23 mmol/L (21-32) Anion Gap 7 (6-14) 7 (6-14) Blood Urea Nitrogen 36 mg/dL (8-26) 30 mg/dL (8-26) Creatinine 1.8 mg/dL (0.7-1.3) 1.6 mg/dL (0.7-1.3) Estimated GFR (Cockcroft-Gault) 44.1 50.6 BUN/Creatinine Ratio 20 (6-20) Glucose Level 79 mg/dL (70-99) 77 mg/dL (70-99) Calcium Level 8.3 mg/dL (8.5-10.1) 8.3 mg/dL (8.5-10.1) Iron Level 41 ug/dL (65-175) Total Iron Binding Capacity 227 ug/dL (250-450) Iron Saturation 18 % (15-34) Ferritin 24 ng/mL (26-388) Total Bilirubin 0.1 mg/dL (0.2-1.0) Aspartate Amino Transf (AST/SGOT) 22 U/L (15-37) Alanine Aminotransferase (ALT/SGPT) 16 U/L (16-63) Alkaline Phosphatase 64 U/L (46-116) Total Protein 9.6 g/dL (6.4-8.2) Albumin 1.7 g/dL (3.4-5.0) Albumin/Globulin Ratio 0.2 (1.0-1.7) Vitamin B12 Level 910 pg/mL (247-911) Serum Folate 18.20 ng/ml (3.2-20.0) Hemoglobin A1c 6.4 % (4.8-5.6) Thyroid Stimulating Hormone (TSH) 2.110 uIU/mL (0.358-3.74) Glucose (Fingerstick) 224 mg/dL (70-99) Test 10/16/17 16:14 10/16/17 20:54 10/17/17 05:00 10/17/17 07:53 Glucose (Fingerstick) 154 mg/dL (70-99) 133 mg/dL (70-99) 78 mg/dL (70-99) Sodium Level 139 mmol/L (136-145) Potassium Level 3.9 mmol/L (3.5-5.1) Chloride Level 111 mmol/L (98-107) Carbon Dioxide Level 22 mmol/L (21-32) Anion Gap 6 (6-14) Blood Urea Nitrogen 29 mg/dL (8-26) Creatinine 1.7 mg/dL (0.7-1.3) Estimated GFR (Cockcroft-Gault) 47.2 Glucose Level 82 mg/dL (70-99) Calcium Level 8.3 mg/dL (8.5-10.1) Laboratory Tests Test 10/16/17 11:18 10/16/17 16:14 10/16/17 20:54 10/17/17 05:00 Glucose (Fingerstick) 224 mg/dL (70-99) 154 mg/dL (70-99) 133 mg/dL (70-99) Sodium Level 139 mmol/L (136-145) Potassium Level 3.9 mmol/L (3.5-5.1) Chloride Level 111 mmol/L (98-107) Carbon Dioxide Level 22 mmol/L (21-32) Anion Gap 6 (6-14) Blood Urea Nitrogen 29 mg/dL (8-26) Creatinine 1.7 mg/dL (0.7-1.3) Estimated GFR (Cockcroft-Gault) 47.2 Glucose Level 82 mg/dL (70-99) Calcium Level 8.3 mg/dL (8.5-10.1) Test 10/17/17 07:53 Glucose (Fingerstick) 78 mg/dL (70-99) Medications Current Medications Sodium Chloride 1,000 ml @ 75 mls/hr [id number] IV Last administered on 07:37; Start 10/15/17 at 15:45 Pantoprazole Sodium (Protonix) 40 mg DAILYAC PO Last administered on 09:05; Start 10/15/17 at 16:30 Citalopram Hydrobromide (CeleXA) 20 mg DAILY PO Last administered on 09:04; Start 10/16/17 at 09:00 Clopidogrel Bisulfate (Plavix) 75 mg DAILY PO Last administered on 10/17/17 09:05; Start 10/16/17 at 09:00 Ferrous Sulfate (Feosol) 325 mg DAILY PO Last administered on 10/17/17 09:05 ; Start 10/16/17 at 09:00 Finasteride (Proscar) 5 mg DAILY PO Last administered on 10/17/17 09:05; Start 10/16/17 at 09:00 Acetaminophen/ Hydrocodone Bitart (Lortab 5/325) 1 tab PRN TID PRN PO MODERATE PAIN; Start 10/15/17 at 21:15 Latanoprost (Xalatan) 1 drop QHS OU Last administered on 10/16/17 20:33; Start 10/16/17 at 21:00 Lisinopril (Prinivil) 5 mg DAILY PO Last administered on 10/17/17 09:05; Start 10/16/17 at 09:00 Promethazine HCl (Phenergan) 6.25 mg PRN TID PRN PO NAUSEA; Start 10/15/17 at 21:15 Quetiapine Fumarate (SEROquel) 100 mg HS PO Last administered on 10/16/17 20: 33; Start 10/15/17 at 22:00 Sucralfate (Carafate) 1 gm QIDACHS PO Last administered on 10/17/17 09:05; Start 10/15/17 at 22:00 Tamsulosin HCl (Flomax) 0.4 mg DAILY PO Last administered on 10/17/17 09:05; Start 10/16/17 at 09:00 Zolpidem Tartrate (Ambien) 5 mg QHS PO Last administered on 10/16/17 20:33; Start 10/15/17 at 22:00 Albuterol Sulfate (Ventolin Neb Soln) 2.5 mg PRN Q4HRS PRN NEB SHORTNESS OF BREATH; Start 10/15/17 at 21:30 Budesonide (Pulmicort) 0.5 mg RTBID NEB Last administered on 10/17/17 08:02; Start 10/16/17 at 08:00 Albuterol/ Ipratropium (Duoneb) 3 ml RTQID NEB Last administered on 10/17/17 08:02; Start 10/16/17 at 08:00 Iron Sucrose 500 mg/Sodium Chloride 275 ml @ 78.571 mls/ hr 1X ONCE IV Last administered on 10/16/17 09:14; Start 10/16/17 at 09:00; Stop 10/16/17 at 12 :29; Status DC Insulin Aspart (NovoLOG) 0-7 UNITS TIDWMEALS SQ Last administered on 17:11; Start 10/16/17 at 12:00 Dextrose (Dextrose 50%-Water Syringe) 12.5 gm PRN Q15MIN PRN IV SEE COMMENTS; Start 10/16/17 at 10:15 Active Scripts Active Reported Latanoprost 2.5 Ml Drops 1 Drop EACHEYE QHS Triamcinolone Acetonide 0.5% Oint (Triamcinolone Acetonide) 15 Gm Oint...g. 1 Deya TP BID Ferrous Sulfate 325 Mg Tablet 1 Tab PO DAILY Quetiapine Fumarate 100 Mg Tablet 100 Mg PO HS Promethazine Hcl 6.25 Mg/5 Ml Syrup 5 Ml PO TID PRN PRN Sucralfate 1 Gm Tablet 1 Tab PO QID Tamsulosin Hcl 0.4 Mg Cap.er.24h 1 Cap PO DAILY Ventolin Hfa Inhaler (Albuterol Sulfate) 18 Gm Hfa.aer.ad 2 Puff INH Q4HRS Hydrocodone-Apap 5-325 (Hydrocodone Bit/Acetaminophen) 1 Each Tablet 1-2 Tab PO Q4-6HRS Finasteride 5 Mg Tablet 5 Mg PO DAILY Ventolin Hfa Inhaler (Albuterol Sulfate) 18 Gm Hfa.aer.ad 2 Puff IH PRN Q4-6HRS Symbicort 160-4.5 Mcg Inhaler (Budesonide/Formoterol Fumarate) 10.2 Gm Hfa.aer.ad 2 Puff IH BID Lisinopril 5 Mg Tablet 1 Tab PO DAILY Glipizide 5 Mg Tablet 1 Tab PO BID Omeprazole 40 Mg Capsule.dr 1 Cap PO DAILY Clopidogrel (Clopidogrel Bisulfate) 75 Mg Tablet 1 Tab PO DAILY Citalopram Hbr (Citalopram Hydrobromide) 20 Mg Tablet 1 Tab PO DAILY Zolpidem Tartrate 5 Mg Tablet 1 Tab PO QHS Vitals/I & O Vital Sign - Last 24 Hours 10/16/17 10/16/17 10/16/17 10/16/17 09:14 09:15 09:30 09:45 Pulse 70 70 78 76 B/P (MAP) 118/66 118/66 (83) 120/64 (82) 115/62 (79) 10/16/17 10/16/17 10/16/17 10/16/17 10:00 10:30 10:56 11:00 Temp 97.1 97.1 Pulse 75 78 72 84 Resp 20 B/P (MAP) 115/59 (77) 106/60 (75) 106/60 (75) 130/73 (92) Pulse Ox 100 O2 Delivery Room Air 10/16/17 10/16/17 10/16/17 10/16/17 11:20 12:00 13:00 15:09 Temp 97.6 97.6 Pulse 73 69 76 Resp 20 B/P (MAP) 110/60 (77) 117/66 (83) 119/63 (81) Pulse Ox 97 O2 Delivery Room Air Room Air 10/16/17 10/16/17 10/16/17 10/16/17 15:11 19:00 19:00 19:54 Temp 97.5 97.5 Pulse 61 Resp 20 B/P (MAP) 112/58 (76) Pulse Ox 100 O2 Delivery Room Air Room Air Room Air Room Air 10/16/17 10/17/17 10/17/17 10/17/17 23:00 03:00 08:03 09:05 Temp 97.6 97.8 97.6 97.8 Pulse 72 72 81 Resp 20 20 B/P (MAP) 135/57 (83) 127/70 (89) 147/69 Pulse Ox 98 99 99 O2 Delivery Room Air Room Air Room Air Intake and Output 10/16/17 10/16/17 10/17/17 14:59 22:59 06:59 Intake Total 815 ml 170 ml Output Total 700 ml 200 ml Balance 115 ml -200 ml 170 ml KRISSY RIDER MD Oct 17, 2017 09:09
[2017-10-17] MEDS ORDERED: FERROUS SULFATE 325 MG TABLET. PO SCH (10:00)
--- NOTE | 2017-10-17 10:16 | PDOC ---
PROGRESS NOTES Subjective Subjective feeling better today Objective Objective Vital Signs Date Time Temp Pulse Resp B/P (MAP) Pulse Ox O2 Delivery O2 Flow Rate FiO2 10/17/17 09:05 81 147/69 10/17/17 08:03 99 Room Air 10/17/17 03:00 97.8 20 97.8 Intake and Output 10/17/17 07:00 Intake Total 985 ml Output Total 900 ml Balance 85 ml Intake Oral 410 ml IV Total 575 ml Output Urine Total 900 ml Physical Exam Heart: Normal S1, Normal S2 General: No acute distress Lungs: Clear to auscultation Neck: No JVD COMMENT po leg amputee Assessment Assessment FINAL IMPRESSION: 1. Anemia, acute on chronic. 2. Coronary artery disease. 3. History of congestive heart failure. 4. History of diabetes. 5. Hypertension. 6. Hyperlipidemia. 7. Bilateral amputee. 8. Diabetic, legally blind from glaucoma and diabetic retinopathy. 9. History of prostate cancer. 10. Severe protein-calorie malnutrition. PLAN: home today ,spoke with pts sister, s/p transfusion hb 8.0 after 1 unit prbc . spoke with GI no further gi plans. spoke with hematology s/p iron transfusion . cr 1.8 chronic kidney problems. Problems: Comment Review of Relevant I have reviewed the following items margi (where applicable) has been applied. Labs Laboratory Tests Test 10/16/17 11:18 10/16/17 16:14 10/16/17 20:54 10/17/17 05:00 Glucose (Fingerstick) 224 mg/dL (70-99) 154 mg/dL (70-99) 133 mg/dL (70-99) Sodium Level 139 mmol/L (136-145) Potassium Level 3.9 mmol/L (3.5-5.1) Chloride Level 111 mmol/L (98-107) Carbon Dioxide Level 22 mmol/L (21-32) Anion Gap 6 (6-14) Blood Urea Nitrogen 29 mg/dL (8-26) Creatinine 1.7 mg/dL (0.7-1.3) Estimated GFR (Cockcroft-Gault) 47.2 Glucose Level 82 mg/dL (70-99) Calcium Level 8.3 mg/dL (8.5-10.1) Test 10/17/17 07:53 Glucose (Fingerstick) 78 mg/dL (70-99) Medications Current Medications Ferrous Sulfate (Feosol) 325 mg DAILYWBKFT PO ; Start 10/17/17 at 10:00 Insulin Aspart (NovoLOG) 0-7 UNITS TIDWMEALS SQ Last administered on 17:11; Start 10/16/17 at 12:00 Latanoprost (Xalatan) 1 drop QHS OU Last administered on 10/16/17 20:33; Start 10/16/17 at 21:00 Vitals/I & O Vital Sign - Last 24 Hours 10/16/17 10/16/17 10/16/17 10/16/17 10:30 10:56 11:00 11:20 Temp 97.1 97.1 Pulse 78 72 84 Resp 20 B/P (MAP) 106/60 (75) 106/60 (75) 130/73 (92) Pulse Ox 100 O2 Delivery Room Air Room Air 10/16/17 10/16/17 10/16/17 10/16/17 12:00 13:00 15:09 15:11 Temp 97.6 97.6 Pulse 73 69 76 Resp 20 B/P (MAP) 110/60 (77) 117/66 (83) 119/63 (81) Pulse Ox 97 O2 Delivery Room Air Room Air 10/16/17 10/16/17 10/16/17 10/16/17 19:00 19:00 19:54 23:00 Temp 97.5 97.6 97.5 97.6 Pulse 61 72 Resp 20 20 B/P (MAP) 112/58 (76) 135/57 (83) Pulse Ox 100 98 O2 Delivery Room Air Room Air Room Air Room Air 10/17/17 10/17/17 10/17/17 03:00 08:03 09:05 Temp 97.8 97.8 Pulse 72 81 Resp 20 B/P (MAP) 127/70 (89) 147/69 Pulse Ox 99 99 O2 Delivery Room Air Room Air Intake and Output 10/16/17 10/16/17 10/17/17 15:00 23:00 07:00 Intake Total 815 ml 170 ml Output Total 700 ml 200 ml Balance 115 ml -200 ml 170 ml ERICA MARIANO MD Oct 17, 2017 10:15
[2017-10-17 11:00] VITALS: BP 111/51
--- NOTE | 2017-10-17 11:15 | PDOC ---
Subjective: Subjective: No complaints. Objective: Objective: Per RN - DC today. Vital Signs: Vital Signs Date Time Temp Pulse Resp B/P (MAP) Pulse Ox O2 Delivery O2 Flow Rate FiO2 10/17/17 09:05 81 147/69 10/17/17 08:03 99 Room Air 10/17/17 07:00 97.5 19 97.5 Labs: Laboratory Tests Test 10/16/17 11:18 10/16/17 16:14 10/16/17 20:54 10/17/17 07:53 Glucose (Fingerstick) 224 mg/dL (70-99) 154 mg/dL (70-99) 133 mg/dL (70-99) 78 mg/dL (70-99) PE: GEN: NAD, in bed w/ blanket over head ABD: S/ND/NT NEURO/PSYCH: appropriate A/P: Chronic XIMENA -Hgb improved w/ transfusion (7.9 on 10/16) -on PO PPI and PO iron QD, also received Venofer x 1 -on previous EGDs and colonoscopies: mild reflux, gastric AVMs (treated w/ APC in 2009), diverticulosis, and hemorrhoids -hyperglobulinemia, SPEP pending -- DC per primary. Follow-up re: SPEP. Continue iron (increase dose?) and PPI. PRIYANK ROCHA Oct 17, 2017 11:15
[2017-10-17 15:00] VITALS: BP 103/60
[2017-10-17 15:26] LABS: KAPPA LAMBDA RATIO 1.48 (0.26-1.65)
[2017-10-19 07:32] LABS: ALPHA 1 0.2 g/dL (0.0-0.4); ALPHA 2 0.6 g/dL (0.4-1.0); BETA 2.1 g/dL (0.7-1.3); GAMMA 3.3 g/dL (0.4-1.8); M-SPIKE Not Observed g/dL (Not Observed); PROTEIN TOTAL 8.2 g/dL (6.0-8.5)
[2017-10-19 14:24] LABS: IMMUNOGLOBULIN A 1304 mg/dL (61-437); IMMUNOGLOBULIN G 3838 mg/dL (700-1600); IMMUNOGLOBULIN M 46 mg/dL (15-143)
--- NOTE | 2017-10-21 10:44 | PDOC ---
Provider Note Provider Note Discharge summary dictated. #[id number]. ERICA MARIANO MD Oct 21, 2017 10:43
--- NOTE | 2017-10-21 15:21 | DS ---
DATE OF DISCHARGE: 10/17/2017 REASON FOR ADMISSION TO THE HOSPITAL: Anemia. CONSULTATIONS: 1. GI, Dr. Ignacio. 2. Dr. Doss, Hematology. BLOOD TRANSFUSION: One unit packed RBC. PROCEDURES DONE: None. COMPLICATIONS NOTED: None. HOSPITAL COURSE: The patient is an 81-year-old male with history of diabetes, diabetic blindness, bilateral leg amputee and he was found to have on routine labs hemoglobin 6, was admitted to the hospital, was seen by GI and given 1 unit of packed RBC, hemoglobin went up to 8. The patient was given IV iron infusion and the patient had immunology, shows kappa and lambda was high. The patient was seen by GI, does not think he would need EGD, had EGD and colonoscopies in the past, and was given IV iron infusion and recommend to follow as outpatient. FINAL DIAGNOSES: 1. Anemia of chronic disease, ondaa-ef-jmwoqqy gastrointestinal blood loss. 2. Anemia, could be secondary to multiple myeloma. 3. Diabetes. 4. Hypertension. 5. Hyperlipidemia. 6. Legally blind from diabetes. 7. Bilateral leg amputee. 8. Chronic euvpxyqn-op-rqhgql protein-calorie malnutrition. DISPOSITION: Home. Follow up with Hematology after a month for followup of the possible multiple myeloma and also monitor hemoglobin periodically. ERICA MARIANO MD DR: IVETTE/nts JOB#: [id number] / [id number]
== END 2017-10-17 17:00 | disposition home or self-care (01) | DRG 811 ==
LOC: EDBD 10:33 → 5 NORTH 10:33
PROVIDERS: ADMIT Internal Medicine; ATTEND Internal Medicine
PROC: 30233N1 Transfusion of Nonautologous Red Blood Cells into Peripheral Vein, Percutaneous Approach (ICD-10-PCS; principal; 2017-10-15)
DX: D50.0 Iron deficiency anemia secondary to blood loss (chronic) (principal); E43 Unspecified severe protein-calorie malnutrition; E11.22 Type 2 diabetes mellitus with diabetic chronic kidney disease; E11.51 Type 2 diabetes mellitus with diabetic peripheral angiopathy without gangrene; I13.0 Hypertensive heart and chronic kidney disease with heart failure and stage 1 through stage 4 chronic kidney disease, or unspecified chronic kidney disease; I50.9 Heart failure, unspecified; E11.319 Type 2 diabetes mellitus with unspecified diabetic retinopathy without macular edema; F17.210 Nicotine dependence, cigarettes, uncomplicated; E11.39 Type 2 diabetes mellitus with other diabetic ophthalmic complication; N18.9 Chronic kidney disease, unspecified; G47.33 Obstructive sleep apnea (adult) (pediatric); G47.00 Insomnia, unspecified; J44.9 Chronic obstructive pulmonary disease, unspecified; K21.0 Gastro-esophageal reflux disease with esophagitis; K44.9 Diaphragmatic hernia without obstruction or gangrene; R79.89 Other specified abnormal findings of blood chemistry; R77.1 Abnormality of globulin; K64.8 Other hemorrhoids; E78.5 Hyperlipidemia, unspecified; H40.9 Unspecified glaucoma; I25.10 Atherosclerotic heart disease of native coronary artery without angina pectoris; H54.8 Legal blindness, as defined in USA; Z89.611 Acquired absence of right leg above knee; Z89.612 Acquired absence of left leg above knee; Z99.3 Dependence on wheelchair; Z85.46 Personal history of malignant neoplasm of prostate; Z79.899 Other long term (current) drug therapy; Z68.32 Body mass index [BMI] 32.0-32.9, adult; Z87.01 Personal history of pneumonia (recurrent); K57.90 Diverticulosis of intestine, part unspecified, without perforation or abscess without bleeding
CPT/HCPCS: 36415; 71010; 80048; 80053; 82607; 82728; 82746; 82784; 82962; 83036; 83520; 83540; 83550; 84165; 84443; 85025; 85045; 86334; 86850; 86900; 86901; 86920; 93005; 94640; 94760; J1756; J1815; J7030; J7050; J7620; J7626; P9016